=== PATIENT | male | born 1965 | race Caucasian/White ===

== ENCOUNTER 2023-05-05 07:56 | Day surgery (SDC) | payer OTHER ==
[~2023-05-05] VITALS: Ht 175.3 cm; Wt 111.3 kg
[~2023-05-05 07:56] MED LIST: ASPI1TAB8 PO; LISI20TA33 PO; NS 1,000 ML IV ONE; ROSU40TA4 PO; TOPR50TA PO; propofoL 200 MG/20 ML VIAL As Ordered ONE
[2023-05-05] MEDS ORDERED: propofoL 200 MG/20 ML VIAL As Ordered ONE ×2 (08:58→09:10)
[2023-05-05 09:18] VITALS: TEMP 97.6
[2023-05-05 09:32] VITALS: BP 131/71; O2SAT 97
== END 2023-05-05 09:43 | disposition home or self-care (01) ==
LOC: M OPP 07:56 → EDUNIT# 08:15 → M OPP 09:43
PROVIDERS: ATTEND Surgery
DX: Z12.11 Encounter for screening for malignant neoplasm of colon (principal); Z86.010 Personal history of colon polyps; K63.5 Polyp of colon; Z79.02 Long term (current) use of antithrombotics/antiplatelets; Z79.82 Long term (current) use of aspirin; Z79.899 Other long term (current) drug therapy